=== PATIENT | female | born 1960 | race Caucasian/White ===

== ENCOUNTER 2016-12-06 09:08 | Day surgery (SDC) | payer OTHER ==
[~2016-12-06] VITALS: Ht 165.1 cm; Wt 94.5 kg
[2016-12-06 09:46] VITALS: BP 139/85; PULSE 82; TEMP 98.4
[2016-12-06] MEDS ORDERED: CYMBALTA 60MG60 MG PO (09:55)
[2016-12-06 11:35] VITALS: BP 129/75; PULSE 85; TEMP 98.3
[2016-12-06 11:45] VITALS: BP 130/68; PULSE 86
[2016-12-06 12:00] VITALS: BP 123/67; PULSE 79
[2016-12-06 12:15] VITALS: BP 115/76; PULSE 82
== END 2016-12-06 12:15 | disposition home or self-care (01) ==
LOC: SDCO 09:08
DX: K62.1 Rectal polyp (principal); K57.30 Diverticulosis of large intestine without perforation or abscess without bleeding; K52.9 Noninfective gastroenteritis and colitis, unspecified; E78.00 Pure hypercholesterolemia, unspecified; Z87.891 Personal history of nicotine dependence; Z90.49 Acquired absence of other specified parts of digestive tract
CPT/HCPCS: J2250; J3010; J7030